=== PATIENT | female | born 1975 ===

== ENCOUNTER 2020-04-10 09:25 | Inpatient (IN) | payer OTHER ==
[~2020-04-10] VITALS: Ht 167.6 cm; Wt 59.9 kg
[2020-04-11] MEDS ORDERED: MEGESTROL ACETA40 MG (09:10)
[2020-04-11] MEDS ORDERED: BENADRYL50 MG PO (12:46)
[2020-04-11] MEDS ORDERED: CODE1TAB37 PO (12:47)
== END 2020-04-11 13:33 | disposition home or self-care (01) | DRG 743 ==
LOC: CIR.AMB 09:25 → O/R 18:00 → OB/GYN 18:00
PROVIDERS: ADMIT Obstetrics & Gynecology; ATTEND Obstetrics & Gynecology
PROC: 0US Female Reproductive System, Reposition (ICD-10-PCS; 2020-04-10)
PROC: 0TJB8ZZ Inspection of Bladder, Via Natural or Artificial Opening Endoscopic (ICD-10-PCS; 2020-04-10)
PROC: 0UT9FZZ Resection of Uterus, Via Natural or Artificial Opening With Percutaneous Endoscopic Assistance (ICD-10-PCS; principal; 2020-04-10 16:00)
DX: N72 Inflammatory disease of cervix uteri (principal); N87.9 Dysplasia of cervix uteri, unspecified; N80.0 Endometriosis of uterus; D25.1 Intramural leiomyoma of uterus; D25.2 Subserosal leiomyoma of uterus; N93.9 Abnormal uterine and vaginal bleeding, unspecified

== ENCOUNTER 2020-06-09 12:13 | Inpatient (IN) | payer OTHER ==
[~2020-06-09] VITALS: Ht 167.6 cm; Wt 70.3 kg
[~2020-06-09 12:13] MED LIST: BENADRYL50 MG PO; CODE1TAB37 PO; MEGESTROL ACETA40 MG
[2020-06-12] MEDS ORDERED: INTESTINEX680 M1 PO (07:50)
[2020-06-12] MEDS ORDERED: PEPCID AC20 MG PO (07:51)
[2020-06-12] MEDS ORDERED: LEVSIN/SL0.125 MG SL (07:52)
== END 2020-06-12 14:41 | disposition home or self-care (01) | DRG 392 ==
LOC: ER 12:13 → OB/GYN 16:44 → SEC-K 16:44 → OB/GYN 22:19
PROVIDERS: ADMIT Obstetrics & Gynecology; ATTEND Obstetrics & Gynecology
PROC: BW2110Z Computerized Tomography (CT Scan) of Abdomen and Pelvis using Low Osmolar Contrast, Unenhanced and Enhanced (ICD-10-PCS; 2020-06-09)
PROC: BW40ZZZ Ultrasonography of Abdomen (ICD-10-PCS; 2020-06-10)
PROC: 0DB98ZX Excision of Duodenum, Via Natural or Artificial Opening Endoscopic, Diagnostic (ICD-10-PCS; principal; 2020-06-11)
PROC: 0DB78ZX Excision of Stomach, Pylorus, Via Natural or Artificial Opening Endoscopic, Diagnostic (ICD-10-PCS; 2020-06-11)
PROC: 0DB68ZX Excision of Stomach, Via Natural or Artificial Opening Endoscopic, Diagnostic (ICD-10-PCS; 2020-06-11)
DX: K29.90 Gastroduodenitis, unspecified, without bleeding (principal); Z98.891 History of uterine scar from previous surgery; Z20.822 Contact with and (suspected) exposure to COVID-19